=== PATIENT | female | born 1965 | race American Indian/Alaskan Native ===

== ENCOUNTER 2016-09-23 16:45 | Emergency (ER) | payer MEDICAID ==
--- NOTE | 2016-09-23 17:19 | C.PDOC ---
History Of Present Illness 50 yr old female presents to the ER with complaints of left side neck pain, posteriorly for the past 3 days. Patient states the pain starts from the base of the scalp left side and radiates down to the mid scapula. Patient works at a low stress job at a desk. Patient describes the pain as sharp and stabbing, states it hurts to move her head but has no difficulty moving it. Patient denies injury or trauma, vision changes, chest pain, headache, weakness or numbness. Time Seen by Provider: 09/23/16 17:02 Chief Complaint (Nursing): Back Pain History Per: Patient History/Exam Limitations: no limitations Onset/Duration Of Symptoms: Days (3) Past Medical History Reviewed: Historical Data, Nursing Documentation, Vital Signs Vital Signs: Last Vital Signs Temp 98.2 F 09/23/16 18:36 Pulse 67 09/23/16 18:36 Resp 18 09/23/16 18:36 BP 157/106 H 09/23/16 18:36 Pulse Ox 100 09/23/16 18:55 Family History: States: No Known Family Hx - Social History Hx Alcohol Use: No Hx Substance Use: No - Immunization History Hx Tetanus Toxoid Vaccination: No Hx Influenza Vaccination: No Hx Pneumococcal Vaccination: No Review Of Systems Except As Marked, All Systems Reviewed And Found Negative. Eyes: Negative for: Vision Change Cardiovascular: Negative for: Chest Pain Musculoskeletal: Positive for: Neck Pain (Left sided posteriorly ) Neurological: Negative for: Weakness, Numbness, Headache Physical Exam - Physical Exam Appears: Well, Non-toxic, No Acute Distress Skin: Warm, Dry Head: Atraumatic, Normacephalic Neck: Normal, Normal ROM, No Midline Cervical Tenderness, Supple, Other (No jose maria tenderness. ) Chest: Symmetrical, No Tenderness Cardiovascular: Rhythm Regular, No Murmur Respiratory: Normal Breath Sounds, No Rales, No Rhonchi, No Stridor, No Wheezing Back: Normal Inspection, No CVA Tenderness Extremity: Normal ROM, No Swelling Neurological/Psych: Oriented x3, Normal Speech, Normal Motor ED Course And Treatment O2 Sat by Pulse Oximetry: 100 - Other Rad X-Ray - Cervical Spine X-Ray: Viewed By Me, Read By Radiologist Interpretation: Cervical spine three views. History: Neck pain. Comparison: None available. Findings: Cervical spine is visualized from C1 through C7. No prevertebral soft tissue swelling. No evidence of acute displaced fracture or dislocation. Dens suboptimally visualized. Mild uncovertebral joint and facet prominence. Impression: Mild degenerative changes. If pain persists, consider MRI. Progress Note: Patient treated with Motrin 800mg and Flexeril 10mg. Reevaluation Time: 18:19 Reassessment Condition: Improved (but still c/o pain with movement of her head.) Medical Decision Making Medical Decision Making: PLAN: * X-Ray - Cervical Spine * HCG * Flexeril PO * Motrin PO Disposition - Disposition Disposition: HOME/ ROUTINE Disposition Time: 19:19 Condition: IMPROVED Prescriptions: Cyclobenzaprine [Cyclobenzaprine HCl] 10 mg PO TID PRN #30 tab PRN Reason: Muscle Spasm Ibuprofen [Motrin Tab] 800 mg PO TID PRN #30 tab PRN Reason: Pain, Severe (8-10) Instructions: Musculoskeletal Pain (ED) - Clinical Impression Clinical Impression: Trapezius muscle spasm - Scribe Statement The provider has reviewed the documentation as recorded by the Don Gonzalez Provider Attestation: All medical record entries made by the Don were at my direction and personally dictated by me. I have reviewed the chart and agree that the record accurately reflects my personal performance of the history, physical exam, medical decision making, and the department course for this patient. I have also personally directed, reviewed, and agree with the discharge instructions and disposition.
--- NOTE | 2016-09-23 18:13 | RAD ---
Cervical spine three views History: Neck pain. Comparison: None available. Findings: Cervical spine is visualized from C1 through C7. No prevertebral soft tissue swelling. No evidence of acute displaced fracture or dislocation. Dens suboptimally visualized. Mild uncovertebral joint and facet prominence. Impression: Mild degenerative changes. If pain persists, consider MRI.
[2016-09-23 18:37] VITALS: TEMP 98.2
[2016-09-23 19:30] VITALS: BP 152/98; PULSE 89; RESP 16; O2SAT 98
== END 2016-09-23 19:29 | disposition home or self-care (01) ==
LOC: C.ER 16:45
DX: M62.838 Other muscle spasm (principal)